=== PATIENT | male | born 1970 | race Hispanic/Latino ===

== ENCOUNTER 2020-08-13 21:36 | Emergency (ER) | payer SELFPAY ==
[2020-08-14 13:34] LABS: SARS-CoV-2 PCR by NAA DETECTED (NotDetected)
== END 2020-08-13 22:10 | disposition home or self-care (01) ==
LOC: BURERS 21:36
DX: U07.1 COVID-19 (principal); J06.9 Acute upper respiratory infection, unspecified; E11.9 Type 2 diabetes mellitus without complications; I10 Essential (primary) hypertension; Z79.899 Other long term (current) drug therapy; Z79.84 Long term (current) use of oral hypoglycemic drugs
CPT/HCPCS: 71046; 87635; U0003; U0005